=== PATIENT | male | born 1975 | race Caucasian/White ===

== ENCOUNTER 2025-01-30 06:46 | Emergency (ER) | payer BC, SELFPAY ==
[2025-01-30 06:48] VITALS: BP 144/99; PULSE 78; RESP 18; TEMP 36.8; O2SAT 97; BMI 33.1
--- NOTE | 2025-01-30 07:05 | RAD_ITS ---
PROCEDURE: KNEE 4 OR MORE VIEWS 01/30/2025 REASON FOR EXAM: PAIN TECHNIQUE: 4 view(s) of the right knee COMPARISON: None available FINDINGS: No acute fracture or dislocation. Small joint effusion is present. Triangular ossific focus at the anterior joint line may represent intra-articular osseous body. Mild osteoarthrosis patellofemoral compartment. Large enthesophyte formation at the quadriceps side of the patella. RAD/Knee 4 or More Views IMPRESSION: No acute fracture or dislocation. Small joint effusion is present. Triangular ossific focus at the anterior joint line may represent intra-articul ar osseous body. Mild osteoarthrosis patellofemoral compartment. Reading Location: [id number]
--- NOTE | 2025-01-30 07:36 | EDS_ITS ---
HPI History of Present Illness Chief Complaint: Lower Extremity Injury Informant: patient and spouse/S.O. Narrative Narrative: 49-year-old male presenting to the emergency room with right knee pain. Patient states for the past week to 2 weeks he says some discomfort in his knee particularly with squatting. He notes last night he had an increase in pain suddenly and felt popping in the knee. He now he notes some mild swelling. States he never had anything wrong with the knees before. Does not have a local orthopedist. Patient denies history of gout or pseudogout. He denies any distinct trauma but does note that he vaguely recalls a twisting injury re cently. He states that he needs to walk up on his tippy toes but putting weight directly down to onto the heel is painful into the knee. PFSH PFSH Medical History no medical history Home Medications ?Medication ?Instructions ?Recorded ?Last Taken ?Type hydrocodone-acetaminophen 5-325mg 1 tab PO Q6H PRN jeferson n 3 days #12 01/30/25 Unknown Rx 5mg-325mg tabs ibuprofen 600 mg tablet 600 mg PO Q6H PRN PRN pain # 20 01/30/25 Unknown Rx TABLETS Allergy/AdvReac Type Severity Reaction Status Date / Time penicillin G AdvReac Hives Verified 01/30/25 06:48 Family History no significant family his Surgical History no surgical history Social History Smoking Status: Current every day smoker tobacco type: cigarettes ROS ROS ED Constitutional Constitutional ED: Denies chills or weight loss Eyes Eyes: Denies change in vision or diplopia ENT ENT ED: Denies ear pain, rhinorrhea or sore throat Cardiovascular Cardiovascular: Denies chest pain, orthopnea, palpitations or racing heartbeat Respiratory/Chest Respiratory/Chest: Denies cough, dyspnea or orthopnea Gastrointestinal Gastrointestinal: Denies abdominal pain, diarrhea, nausea or vomiting Genitourinary Genitourinary ED: Denies dysuria, hematuria or urinary frequency Musculoskeletal Musculoskeletal: Reports other Details: Right knee pain ; Denies arthralgias or myalgias Integumentary Denies abscess or rash Neurologic Neurologic: Denies headache(s) or weakness Psychiatric Psychiatric: Denies anxiety, depression, suicidal ideation or suicidal thoughts Endocrine Endocrinology: Denies polydipsia, polyphagia or polyuria Allergic/Immunologic Allergic/Immunologic ED: Denies mouth swelling, tongue swelling or urticaria EXAM Physical Exam Const Vital Signs: 01/30/25 06:48 Temperature 98.2 F Temperature Source Oral Pulse Rate 78 Respiratory Rate 18 Blood Pressure 144/99 H Blood Pressure Mean 114 Pulse Ox 97 Oxygen Delivery Method Room Air Positive well nourished and well developed General Appearance ED: well developed and NAD HEENT Reports normocephalic, head/scalp atraumatic and moist mucous membranes Eyes PERRL and EOMs intact bilaterally Neck no lymphadenopathy, supple and no JVD Resp normal respiratory effort and clear to auscultation bilaterally Cardio regular rate, regular rhythm and no murmurs GI normal to inspection, nondistended, normoactive bowel sounds and non-tender Palpation: soft Back/Spine no CVA tenderness and normal ROM Extremity Extremity Narrative: There is a small palpable effusion. Mild swelling along the lateral contours of the patella are noted. Patella itself is nontender. I only appreciate tenderness to palpation posterior joint line. He notes pain with anterior drawer. There is questionable subtle give with anterior drawer test. Rest of the ligamentous stability is intact. There is no erythema or increased warmth. Achilles is palpably intact. There is no significant calf tenderness or palpable cords General Extremety ED: Negative for edema General Extremity: Negative for edema Neuro oriented x3 and CN's II-XII intact bilaterally Sensorium / Orientation: alert Motor Exam: strength 5/5 throughout Psych mental status grossly normal Mood & Affect: Negative for depressed or tearful Skin no rashes or lesions noted and no wounds MDM MDM MDM Narrative Medical decision making narrative: Differential diagnosis includes ligamentous tear strain degenerative changes joint effusion fracture joint mice, meniscal injury My independent interpretation the plain films is mild degenerative changes of the patella with possible joint mice. There is a small joint effusion noted. Clinically he does not have trauma. He has pain with anterior drawer with a slight give compared to the left. He is reasonable that he uses crutches as needed Renard wrap ice compression elevation as needed Tylenol and orthopedic follow-up. Patient is comfortable with this plan History & Record Review Discussion w/independent historian: Patient and Significant other Radiography Diagnostic Testing: Clinical Impression(s) from Imaging Studies Knee X-Ray 01/30/25 07:05 IMPRESSION: No acute fracture or dislocation. Small joint effusion is present. Triangular ossific focus at the anterior joint line may represent intra- articular osseous body. Mild osteoarthrosis patellofemoral compartment. Reading Location: [id number] Discharge Plan Triage Chief Complaint: Lower Extremity Injury ED Provider: Radames Andrea Dx/Rx/DC Orders Clinical Impression: Acute pain of right knee, Effusion, right knee Instructions: ED Knee Effusion Prescriptions: New ibuprofen 600 mg tablet 600 mg PO Q6H PRN PRN (Reason: pain) Qty: 20 0RF hydrocodone-acetaminophen 5-325 mg tablet 1 tab PO Q6H PRN (Reason: pain) 3 Days Qty: 12 0RF Primary Care Provider: Care Physician,No Primary Referrals: Eliazar Beckford MD [Med Staff - Active Staff] - As soon as possible (for orthopedics) Care Physician,No Primary [Primary Care Provider] - Print Language: Maltese Disposition Disposition: Home, Self Care
[2025-01-30 08:05] VITALS: BP 132/110; PULSE 69; RESP 16; TEMP 36.7; O2SAT 98
--- NOTE | 2025-01-30 08:06 | ED.RN ---
PT HAS HAD 4 HIGH BP READINGS. D/C BP WAS 132/110. PT DENIES TAKING BP MEDS OR THE NEED. HE STATES I DRINK RED BULL I ADVISED THE PT HIS HR LOOKED GOOD WHICH IS USUALLY EFFECTED BY THE DRINK WELL. THIS NURSE WENT OVER PT EDUCATION ON TAKING READINGS AT HOME LISTING TIME, POSITION, AND WHAT ARM IT IS TAKEN ON. TAKE TO PCP SO THEY CAN FURTHER DECIDE NEED FOR MEDS POSSIBLY. WAS AT BEDSIDE AND APPRECIATIVE BECAUSE SHE HAS BEEN TELLING HIM TO GET IT CHECKED OUT BECAUSE HE HAS BEEN RUNNING HIGH. ER AWARE OF BP READINGS AT VISIT TODAY
== END 2025-01-30 08:09 | disposition home or self-care (01) ==
PROVIDERS: Emergency Provider Emergency Medicine; Visit Provider Emergency Medicine
DX: M25.561 Pain in right knee (principal); M25.461 Effusion, right knee; F17.210 Nicotine dependence, cigarettes, uncomplicated; X50.1XXA Overexertion from prolonged static or awkward postures, initial encounter
CPT/HCPCS: 73564; 99282

== ENCOUNTER → 2025-03-20 | Outpatient (CLI) | payer BC, SELFPAY ==
--- NOTE | 2025-03-20 16:15 | MRI_ITS ---
PROCEDURE: LOWER EXT JOINT ONLY (ROUTINE) 03/20/2025 REASON FOR EXAM: R KNEE INTERNAL DERANGEMENT TECHNIQUE: LOWER EXT JOINT ONLY (ROUTINE) Multiplanar and multisequence images were obtained without IV contrast administration. COMPARISON: 01/30/2025 FINDINGS: Essentially complete radial tear at the posterior root of the medial meniscus. Associated increased intrasubstance signal in the posterior horn of the medial meniscus and moderate extrusion of the medial meniscal body. Mild fraying of the posterior root of the lateral meniscus which is otherwise intact. Intact anterior and posterior cruciate ligaments. Intact medial collateral ligament. Intact lateral collateral ligament complex. Intact extensor mechanism. Mild/moderate chondral thinning along the midpole of the patella without a focal full-thickness defect. Mild chondral thinning along the inferior trochlea at the groove. Mild diffuse chondral thinning and fibrillation along the middle 3rd of the medial femoral condyle and anterior aspect of the medial tibial plateau. Small partial-thickness chondral defect at the junction of the middle and posterior thirds of the lateral femoral condyle. Small joint effusion with mild synovitis. Prominent suprapatellar plica. Negative for fracture or marrow replacement. Low-level bone marrow edema along the peripheral aspect of the medial tibial condyle. Patellar enthesopathy. No sizable Barrientos's cyst. Small septated ganglion along the popliteus myotendinous junction. MRI/Lower Ext Joint Only (Routine) IMPRESSION: 1. Essentially complete radial tear at the posterior root of the medial meniscu s as above. 2. Subtle fraying of the posterior root of the lateral meniscus without a discr ete tear. 3. Mild tricompartmental osteoarthritis as detailed above. 4. Small joint effusion. 5. Additional findings as above. Reading Location[facility]
== END | disposition home or self-care (01) ==
LOC: MRI 16:07
PROVIDERS: Referring Provider Nurse Practitioner Family; Visit Provider Nurse Practitioner Family
DX: M23.91 Unspecified internal derangement of right knee (principal); M25.461 Effusion, right knee; M25.561 Pain in right knee
CPT/HCPCS: 73721